=== PATIENT | female | born 1985 | race American Indian/Alaskan Native ===

== ENCOUNTER 2021-03-22 12:58 | Outpatient (CLI) | payer OTHER | END 2021-03-22 17:10 | disposition home or self-care (01) | LOC: LAB 12:58 → APU 16:58 → LAB 17:10 | PROVIDERS: ATTEND Obstetrics & Gynecology | DX: O26.893 Other specified pregnancy related conditions, third trimester (principal); Z67.41 Type O blood, Rh negative; Z3A.29 29 weeks gestation of pregnancy | CPT/HCPCS: 86850; 86900; 86901; 96372; J2790 ==

== ENCOUNTER 2021-06-07 23:37 | Outpatient (CLI) | payer OTHER ==
[2021-06-08 00:44] LABS: Bilirubin,Urine NEG (Negative); Blood,Urine MOD (Negative); Color,Urine Yellow (Yellow); Urobilinogen,Urine < 2.0 mg/dL (<2.0)
[2021-06-08 00:49] LABS: RBC,Urine < 1.0 /HPF (0.0-6.0)
[2021-06-08 02:03] VITALS: BP 106/71
== END 2021-06-08 02:32 | disposition home or self-care (01) ==
LOC: TRG 23:37 → APU 23:40 → TRG 06-08 02:32
PROVIDERS: ATTEND Obstetrics & Gynecology
DX: O09.893 Supervision of other high risk pregnancies, third trimester (principal); Z3A.39 39 weeks gestation of pregnancy
CPT/HCPCS: 59025; 81001

== ENCOUNTER 2021-06-08 13:40 | Inpatient (IN) | payer OTHER ==
[2021-06-08] MEDS ORDERED: LACTATED RINGERS 2,000 ML ONE (15:18)
[2021-06-08] MEDS ORDERED: fentaNYL 100 MCG/2 ML INJ ONE (15:35)
[2021-06-08] MEDS ORDERED: fentaNYL 100 MCG/2 ML INJ IV ONE (15:42)
[2021-06-08] MEDS ORDERED: LACTATED RINGERS 1,000 ML IV ONE (15:43)
[2021-06-08 16:05] LABS: Hematocrit 36.5 % (30.3-42.9); Hemoglobin 11.7 gm/dl (10.1-14.3); Mean Corpuscular HGB Conc 32 % (30-34); Mean Corpuscular Volume 93 fl (79-97); Platelet Count 221 K/mm3 (140-440); Red Blood Count 3.92 M/mm3 (3.65-5.03); Red Cell Distribution Width 13.8 % (13.2-15.2)
[2021-06-08] MEDS ORDERED: ePHEDrine SULFATE 50 MG/1 ML INJ IV PRN ×2 (16:05→16:13)
[2021-06-08] MEDS ORDERED: NALOXONE 2 MG/2 ML INJ IV PRN (16:05)
[2021-06-08] MEDS ORDERED: ACETAMINOPHEN 325 MG TAB PO PRN (16:13)
[2021-06-08] MEDS ORDERED: LOPERAMIDE 2 MG CAP PO PRN (16:13)
[2021-06-08] MEDS ORDERED: METHYLERGONOVINE MALEATE 0.2 MG/ML VIAL IM PRN (16:13)
[2021-06-08] MEDS ORDERED: fentaNYL 100 MCG/2 ML INJ IV PRN (16:13)
[2021-06-08] MEDS ORDERED: CARBOPROST TROMETHAMINE 250 MCG/1 ML INJ IM PRN (16:13)
[2021-06-08] MEDS ORDERED: TERBUTALINE 1 MG/1 ML INJ SUB-Q PRN (16:13)
[2021-06-08] MEDS ORDERED: LIDOCAINE (2%) 20 MG/1 ML VIAL 20 ML MDV INFILTRATI ONE (16:13)
[2021-06-08] MEDS ORDERED: BUTORPHANOL 2 MG/1 ML INJ IV PRN (16:13)
[2021-06-08] MEDS ORDERED: miSOPROStol 200 MCG TAB PR PRN (16:13)
[2021-06-08] MEDS ORDERED: OXYTOCIN 10 UNIT/1 ML INJ IM PRN (16:13)
[2021-06-08] MEDS ORDERED: MINERAL OIL 30 ML ORAL LIQD PO PRN (16:13)
[2021-06-08] MEDS ORDERED: LACTATED RINGERS 1,000 ML IV SCH (16:15)
--- NOTE | 2021-06-08 16:23 | Anesthesia Consultation ---
Anesthesia Consult and Med Hx Date of service: 06/08/21 - Airway Anesthetic Teeth Evaluation: Good ROM Head & Neck: Adequate Mental/Hyoid Distance: Adequate Mallampati Class: Class II Intubation Access Assessment: Probably Good - Pulmonary Exam CTA: Yes - Cardiac Exam Cardiac Exam: RRR - Pre-Operative Health Status ASA Pre-Surgery Classification: ASA2 Proposed Anesthetic Plan: Epidural - Pulmonary Hx Smoking: Yes Hx Asthma: No - Cardiovascular System Hx Hypertension: No - Central Nervous System Hx Seizures: No Hx Psychiatric Problems: No - Endocrine Hx Renal Disease: No Hx Hypothyroidism: No Hx Hyperthyroidism: No - Hematic Hx Anemia: No Hx Sickle Cell Disease: No - Other Systems Hx Alcohol Use: No
--- NOTE | 2021-06-08 16:24 | Progress Note ---
Labor Epidural - Labor Epidural Start Time: 16:12 Stop Time: 16:16 Performed by:: ROBERTO VILLASEÑOR Procedure: Patient is requesting epidural for labor pain. H&P, and labs reviewed. Procedure explained, questions answered, consent obtained. Patient in sitting position with blood pressure cuff and pulse ox on and working. Timeout performed immediately before start of procedure. Sterile Duraprep prep/drape. 3 mL 1% lidocaine skin wheal at L[3]-L[4]. 17-gauge tuohy epidural needle advanced to [id number] with saline at [7] cm. 25-gauge spinal needle advanced until clear, free-flowing CSF. Intrathecal dexmedetomidine [5] mcg administered and needle removed. Epidural catheter advanced to [12] cm, negative aspiration for blood and csf, negative test dose 3 ml 1.5% lidocaine with epinephrine. Sterile sponge and tegaderm applied, followed by tape reinforcement. Patient tolerated procedure well.
--- NOTE | 2021-06-08 16:56 | History and Physical Report ---
History of Present Illness Date of examination: 06/08/21 Date of admission: 06/08/2021 Chief complaint: I'm having contractions Past History - Obstetrical History : 4 Medications and Allergies Allergies Allergy/AdvReac Type Severity Reaction Status Date / Time amoxicillin Allergy Swelling Verified 01/26/15 21:10 Penicillins Allergy Swelling Verified 01/26/15 21:10 Home Medications Medication Instructions Recorded Confirmed Last Taken Type One Daily Tablet 1 tab PO DAILY 06/08/21 06/08/21 Unknown History Active Meds: Active Medications Acetaminophen (Acetaminophen 325 Mg Tab) 650 mg PO Q4H PRN PRN Reason: Pain, Mild (1-3) Butorphanol Tartrate (Butorphanol 2 Mg/1 Ml Inj) 1 mg IV Q2H PRN PRN Reason: Pain, Moderate(4-6) LABOR PAIN Carboprost Tromethamine (Carboprost Tromethamine 250 Mcg/1 Ml Inj) 250 mcg IM ONCE PRN PRN Reason: Uterine Bleeding Ephedrine Sulfate (Ephedrine Sulfate 50 Mg/1 Ml Inj) 10 mg IV Q2M PRN PRN Reason: Hypotension Ephedrine Sulfate (Ephedrine Sulfate 50 Mg/1 Ml Inj) 10 mg IV Q2M PRN PRN Reason: Hypotension Fentanyl (Fentanyl 100 Mcg/2 Ml Inj) 100 mcg IV Q2H PRN PRN Reason: Pain,Severe (7-10) LABOR PAIN Lactated Ringer's (Lactated Ringers) 1,000 mls @ 999 mls/hr IV BOLUS ONE Stop: 06/08/21 16:43 Fentanyl/Bupivacaine/Sodium Chlor (Fentanyl-Bupiv 2 Mcg/Ml-0.125%) 200 mcg in 100 mls @ 12 mls/hr EPIDURAL TITR MINI; Protocol Oxytocin/Sodium Chloride (Pitocin/Ns 30 Unit/500ml) 30 units in 500 mls @ 2 mls/hr IV TITR MINI; Protocol Lactated Ringer's (Lactated Ringers) 1,000 mls @ 125 mls/hr IV DIRECT MINI Oxytocin/Sodium Chloride (Pitocin/Ns 30 Unit/500ml) 30 units in 500 mls @ 40 mls/hr IV TITR MINI; Protocol Lidocaine (Lidocaine (2%) 20 Mg/1 Ml Vial 20 Ml Mdv) 20 ml INFILTRATI ONCE ONE Stop: 06/08/21 16:14 Loperamide HCl (Loperamide 2 Mg Cap) 2 mg PO ONCE PRN PRN Reason: give with Hemabate Methylergonovine Maleate (Methylergonovine Maleate 0.2 Mg/Ml Vial) 0.2 mg IM ONCE PRN PRN Reason: Uterine Bleeding Mineral Oil (Mineral Oil 30 Ml Oral Liqd) 30 ml PO QHS PRN PRN Reason: Constipation Misoprostol (Misoprostol 200 Mcg Tab) 800 mcg WI ONCE PRN PRN Reason: Uterine Bleeding Naloxone HCl (Naloxone 2 Mg/2 Ml Inj) 0.2 mg IV Q5M PRN PRN Reason: Respiratory sedation Oxytocin (Oxytocin 10 Unit/1 Ml Inj) 10 unit IM ONCE PRN PRN Reason: Uterine Bleeding Terbutaline Sulfate (Terbutaline 1 Mg/1 Ml Inj) 0.25 mg SUB-Q ONCE PRN PRN Reason: Hyperstimulation/Hypertonicity - Vital Signs Vital signs: Vital Signs Temp Pulse Resp BP Pulse Ox 98.1 F 100 H 20 118/69 99 06/08/21 14:15 06/08/21 14:15 06/08/21 14:15 06/08/21 14:15 06/08/21 14:15 Temp Pulse Resp BP Pulse Ox 98.1 F 98 H 20 113/69 100 06/08/21 14:15 06/08/21 16:22 06/08/21 15:44 06/08/21 16:22 06/08/21 16:22 Results Result Diagrams: 06/08/21 15:10 Abnormal lab results 06/08/21 Range/Units 15:10 WBC 15.2 H (4.5-11.0) K/mm3 All other labs normal.
[2021-06-08] MEDS ORDERED: OXYTOCIN DRIP 30 UNITS/500 ML BAG IV SCH ×2 (17:00)
[2021-06-08] MEDS ORDERED: fentaNYL-BUPIV 2 MCG/ML-0.125% 200 MCG/100 ML BAG EPIDURAL SCH (17:00)
--- NOTE | 2021-06-08 18:09 | Procedure Note ---
OB Delivery Note - Delivery Date of Delivery: 06/08/21 Surgeon: FLOR[place] COLES Estimated blood loss: 200cc - Vaginal Delivery presentation: vertex Delivery position: OA Delivery induction: none Delivery monitor: external FHT, external uterine Route of delivery: Delivery placenta: spontaneous Delivery cord: nuchal cord, 3 umbilical vessels Episiotomy: none Delivery laceration: other (periurethral laceration) Delivery comments: Viable male delivered over intact perineum with loose nuchal easily reduced on perineum Weight 8 pounds 5 ounces/3910 grams. Placenta delivered spontaneously and intact with 3vc. Small laceration was hemostatic. Excellent hemostasis. - A at 1 minute: 8 at 5 minutes: 9 Gender: Male (8 pounds 5 ounces)
[2021-06-08] MEDS ORDERED: ONDANSETRON 4 MG/2 ML INJ IV PRN (22:14)
[2021-06-08] MEDS ORDERED: PROMETHAZINE 25 MG RECT SUPP PR PRN (22:14)
[2021-06-08] MEDS ORDERED: PROMETHAZINE 25 MG TAB PO PRN (22:14)
[2021-06-08] MEDS ORDERED: diphenhydrAMINE 25 MG CAP PO PRN (22:14)
[2021-06-08] MEDS ORDERED: LANOLIN/ZINC/DIMETHICONE (LANSINOH) 7 GM TP PRN (22:14)
[2021-06-08] MEDS ORDERED: WITCH HAZEL/ GLYCERIN PAD TP PRN (22:14)
[2021-06-08] MEDS ORDERED: HYDROcodone/ACETAMINOPHEN 5-325 MG TAB PO PRN (22:14)
[2021-06-08] MEDS ORDERED: MAGNESIUM HYDROXIDE (MOM) ORAL LIQD UDC PO PRN (22:14)
[2021-06-08] MEDS: IBUPROFEN 600 MG TAB PO SCH (22:27)
[2021-06-09] MEDS: IBUPROFEN 600 MG TAB PO SCH ×4 (05:43→21:45)
[2021-06-09 09:56] LABS: Hematocrit 30.8 % (30.3-42.9); Hemoglobin 9.8 gm/dl (10.1-14.3)
[2021-06-09] MEDS ORDERED: PRENATAL VIT27-FE FUMARATE-FOLIC ACID VIT TAB PO SCH (10:00)
--- NOTE | 2021-06-09 14:55 | Post Anesthesia Evaluation ---
- Post Anesthesia Evaluation Patient Participated: Yes Airway Patent: Yes Stable Respiratory Function: Yes Nausea/Vomiting: No Temp > 96.8F: Yes Pain Manageable: Yes Adequeate Hydration: Yes Anesthesia Complications: No Block Receding Appropriately: Yes
--- NOTE | 2021-06-09 17:29 | Progress Note ---
Assessment and Plan day 1 status post vaginal delivery. Patient doing well. Patient may possibly be discharged on this evening pending discharge of the baby, otherwise she will go home in the morning. Subjective - Subjective Date of service: 06/09/21 Principal diagnosis: Status post spontaneous delivery Patient reports: appetite normal, voiding normally, pain well controlled, ambulating normally : doing well Objective - Vital Signs Latest vital signs: Vital Signs Temp Pulse Resp BP BP Pulse Ox Pulse Ox 06/09/21 08:30 98 06/09/21 07:50 98.1 F 89 20 118/73 98 06/09/21 05:43 18 06/09/21 05:02 97.8 F 84 20 122/79 100 06/09/21 01:31 98.3 F 101 H 20 105/65 97 06/09/21 00:00 98.3 F 101 H 20 105/65 97 06/08/21 22:27 18 06/08/21 21:15 98.6 F 104 H 18 118/73 99 06/08/21 21:14 100 06/08/21 19:47 98 H 100 06/08/21 19:42 93 H 100 06/08/21 19:40 107 H 116/73 06/08/21 19:38 99 H 94 06/08/21 19:37 91 H 100 06/08/21 19:33 100 06/08/21 19:32 102 H 100 06/08/21 19:31 98.0 F 99 H 14 137/64 100 06/08/21 19:27 109 H 100 06/08/21 19:23 92 H 137/64 06/08/21 19:22 109 H 100 06/08/21 19:17 86 99 06/08/21 19:12 98 H 100 06/08/21 19:10 100 H 116/62 06/08/21 19:07 104 H 100 06/08/21 19:02 99 H 100 06/08/21 18:57 93 H 99 06/08/21 18:52 111 H 100 06/08/21 18:47 101 H 100 06/08/21 18:42 102 H 100 06/08/21 18:37 102 H 100 06/08/21 18:35 107 H 102/65 06/08/21 18:32 99 H 99 06/08/21 18:27 94 H 100 06/08/21 18:22 92 H 100 06/08/21 18:20 97 H 102/61 06/08/21 18:17 116 H 100 06/08/21 18:12 102 H 100 06/08/21 18:07 107 H 100 06/08/21 18:05 105 H 97/62 06/08/21 18:02 100 H 99 06/08/21 18:00 98.1 F 06/08/21 17:57 107 H 100 06/08/21 17:52 98 H 100 06/08/21 17:50 105 H 94/50 06/08/21 17:47 95 H 99 06/08/21 17:42 91 H 99 06/08/21 17:37 92 H 100 06/08/21 17:35 93 H 94/51 06/08/21 17:32 92 H 99 06/08/21 17:27 94 H 100 06/08/21 17:22 90 100 Intake and Output 06/09/21 06/09/21 06/09/21 06:59 14:59 22:59 Intake Total 480 Output Total 500 500 Balance -20 -500 Intake: Oral 480 Output: Urine 500 500 Void 500 500 Other: Total, Intake Amount 240 Total, Output Amount 500 500 # Voids Void 1 - Exam Breasts: Present: deferred Cardiovascular: Present: Regular rate, Normal S1, Normal S2 Lungs: Present: Clear to auscultation, Normal air movement Abdomen: Present: normal appearance, soft, normal bowel sounds Uterus: Present: normal, firm Extremities: Present: normal - Labs Labs: Abnormal lab results 06/09/21 Range/Units 09:11 Hgb 9.8 L (10.1-14.3) gm/dl
--- NOTE | 2021-06-09 17:34 | Discharge Summary ---
Providers - Providers Date of Admission: 06/08/21 16:13 Date of discharge: 06/09/21 Attending physician: FLOR[place] COLES Primary care physician: FLOR[place] COLES Hospitalization Reason for admission: active labor Delivery: Episiotomy: none Laceration: other Other procedures: none complications: none Discharge diagnosis: IUP at term delivered baby: male Hospital course: Unremarkable Condition at discharge: Good Disposition: 01 HOME / SELF CARE / HOMELESS Plan - Provider Discharge Summary Activity: routine, no sex for 6 weeks, no heavy lifting 4 weeks, no strenuous exercise Diet: routine Instructions: routine Additional instructions: [] Smoking cessation referral if applicable(refer to patient education folder for contact #) [] Refer to [facility] Booklet Call your doctor immediately for: * Fever > 100.5 * Heavy vaginal bleeding ( >1 pad per hour) * Severe persistent headache * Shortness of breath * Reddened, hot, painful area to leg or breast * Drainage or odor from incision. * Keep incision clean and dry at all times and follow doctor's instructions regarding bathing/showering - Follow up plan Follow up: FLORIDA COLES MD [Primary Care Provider] - 6 Weeks
[2021-06-10] MEDS ORDERED: TETANUS,DIPH,PERTUSS(ACELL) VACCINE 0.5 ML SYRINGE IM ONE (06:00)
[2021-06-10] MEDS: IBUPROFEN 600 MG TAB PO SCH (06:30)
[2021-06-10 09:29] VITALS: BP 123/79
== END 2021-06-10 11:26 | disposition home or self-care (01) | DRG 807 ==
LOC: TRG 13:40 → LD 14:49 → TRG 16:45 → OB 21:14
PROVIDERS: ADMIT Obstetrics & Gynecology; ATTEND Obstetrics & Gynecology
PROC: 10E0XZZ Delivery of Products of Conception, External Approach (ICD-10-PCS; principal; 2021-06-08)
PROC: 3E0R3BZ Introduction of Anesthetic Agent into Spinal Canal, Percutaneous Approach (ICD-10-PCS; 2021-06-08)
PROC: 00HU33Z Insertion of Infusion Device into Spinal Canal, Percutaneous Approach (ICD-10-PCS; 2021-06-08)
PROC: 0UQMXZZ Repair Vulva, External Approach (ICD-10-PCS; 2021-06-08)
PROC: 3E0234Z Introduction of Serum, Toxoid and Vaccine into Muscle, Percutaneous Approach (ICD-10-PCS; 2021-06-10)
PROC: 3E0234Z Introduction of Serum, Toxoid and Vaccine into Muscle, Percutaneous Approach (ICD-10-PCS; 2021-06-10)
DX: O69.81X0 Labor and delivery complicated by cord around neck, without compression, not applicable or unspecified (principal); Z37.0 Single live birth; Z3A.39 39 weeks gestation of pregnancy; Z23 Encounter for immunization; O71.82 Other specified trauma to perineum and vulva
CPT/HCPCS: 36415; 59025; 81001; 85014; 85018; 85027; 85461; 86592; 86850; 86900; 86901; 90471; 90715; G0378; J2790; J3010; J7120; U0003